=== PATIENT | female | born 1975 | race Caucasian/White ===

== ENCOUNTER 2016-12-02 14:00 | Inpatient (IN) | payer OTHER ==
[~2016-12-02] VITALS: Ht 167.6 cm; Wt 109.1 kg
[2016-12-02 16:00] VITALS: Ht 167.6 cm; Wt 109.1 kg
[2016-12-02 16:32] VITALS: BP 122/71; RESP 16
[2016-12-02] MEDS ORDERED: ONDANSETRON 4 MG INJ IV PRN (17:00)
[2016-12-02] MEDS ORDERED: HYDROCODONE/APAP (5/325) TAB PO PRN (17:00)
[2016-12-02] MEDS ORDERED: morphine 2 MG INJ IV PRN (17:00)
[2016-12-02] MEDS: SOD CHLORIDE 0.9% 1,000 ML IV SCH (17:38)
[2016-12-02] MEDS: CEFTRIAXONE 1 GM/50 ML (PMX) 50 ML IVPB SCH (17:38)
--- NOTE | 2016-12-02 19:02 | HP ---
Date/Time of Note Date/Time of Note DATE: 12/02/16 TIME: 18:57 Assessment/Plan VTE Prophylaxis VTE Prophylaxis Intervention: ambulation Lines/Catheters IV [facility] (from [facility] Peripheral IV Urinary Cath still in place: No Assessment/Plan Chief Complaint/Hosp Course 1. Right-sided nephrolithiasis IV fluids Urology consultation obtained Pain control 2. Hypothyroidism Resume home medications 3. UTI secondary to nephrolithiasis Rocephin IV Prophylaxis: Ambulate Problems: HPI/ROS Admit Date/Time Admit Date/Time Dec 02, 2016 at 16:00 Hx of Present Illness Patient is a 41-year-old female with history of hypothyroidism as well as likely nephrolithiasis. Patient had appear to be an episode of nephrolithiasis several months ago which resolved on its own. Patient states that the pain returned on the right side last week where she presented to an outside ER and CT abdomen showed right-sided nephrolithiasis, she was discharged with pain medications but pain persisted and hence returned to the ED where KUB still showed a right-sided stone and ultrasound of the right kidney showed hydronephrosis. UA at outside hospital suggested a UTI. Patient currently denies any significant pain but does report some nausea. Patient has no other complaints this time. ROS Constitutional: improved, no complaints Eyes: no complaints ENT: no complaints Respiratory: no complaints Cardiovascular: no complaints Gastrointestinal: nausea Genitourinary: no complaints Musculoskeletal: no complaints Skin: no complaints Neurologic: no complaints Endocrine: no complaints Lymphatic: no complaints Psychological: nl mood/affect, no complaints Immunologic: no complaints PMH/Family/Social Past Medical History Medical History: hypothyroid Family History Significant Family History: other (Sister with kidney stones) Social History Alcohol Use: rarely Smoking Status: Never smoker Drug Use: none Exam/Review of Systems Vital Signs Vitals Vital Signs Date Time Temp Pulse Resp B/P Pulse Ox O2 Delivery O2 Flow Rate FiO2 12/02/16 16:32 98.7 74 16 122/71 95 Exam Constitutional: alert, oriented Respiratory: clear to auscultation Cardiovascular: regular rate and rhythm Gastrointestinal: soft, No distended Musculoskeletal: nl extremities to inspection Medications Medications Current Medications Sodium Chloride (NS) 1,000 ml @ 100 mls/hr Q10H IV Last administered on t 17:38; Admin Dose 100 MLS/HR; Start 12/02/16 at 17:00 Morphine Sulfate (morphine) 2 mg Q3 PRN IV PAIN; Start 12/02/16 at 17:00 Acetaminophen/ Hydrocodone Bitart ([place] (5/325)) 1 tab Q4H PRN PO PAIN; Start 12/02/16 at 17:00 Ondansetron HCl 4 mg 4 mg Q6H PRN IV NAUSEA AND/OR VOMITING Last administered on 12/02/16 17:55; Admin Dose 4 MG; Start 12/02/16 at 17:00 Ceftriaxone Sodium (Rocephin) 50 ml @ 100 mls/hr Q24H IVPB Last administered on 12/02/16 17:38; Admin Dose 100 MLS/HR; Start 12/02/16 at 17:00 Ketorolac Tromethamine (Toradol) 15 mg Q6H PRN IV PAIN; Start 12/02/16 at 18:00 ; Stop 12/05/16 at 17:59 KEVON DONNELLY Dec 02, 2016 19:02
--- NOTE | 2016-12-02 19:27 | CONS ---
Date/Time of Note Date/Time of Note DATE: 12/02/16 TIME: 19:17 Assessment/Plan Assessment/Plan Chief Complaint/Hosp Course 41-year-old female with history of right flank pain and right upper ureteral stone on prior CT scan that was done 5 days earlier. The patient had an attack of pain earlier this morning and has right hydronephrosis on the ultrasound. Since we do not have the results of the CT scan that she had and the stone is not seen on the KUB I will order a repeat of the CAT scan to localize the stone and see the size of the stone then one could make a decision as far as treatment in the meantime we shall strain all her urine for stones send urine for culture and sensitivity as it was reported that she does have the urinary tract infection She does have a history of hypothyroidism continue her thyroid medications Problems: Consultation Date/Type/Reason Admit Date/Time Dec 02, 2016 at 16:00 Date of Consultation: Dec 02, 2016 Type of Consultation: Urology Reason for Consultation Right hydronephrosis and possible right ureteral stone Referring Provider: KEVON DONNELLY of Present Illness 41-year-old female 2 para 2 presented to the emergency room at [facility] 5 days ago with right flank pain. She had a CT scan of the abdomen and pelvis and that showed a right ureteral stone. the patient does not know the size of the stone she was given pain medication and sent home with instruction to see her primary care doctor and be referred to a urologist. However the patient continued to have pain daily and she could not tolerate the pain anymore so she went back to the same emergency room at [facility]. This time they did a renal ultrasound which showed right hydronephrosis and a KUB of which the report is not available to me. The patient was transferred to [facility] because of insurance. When she was she did not have any kidney problem and there was no history of stones at that time. However earlier this year she was found to have microscopic hematuria and her doctor in [facility] did an ultrasound on her and may have told her she may have a stone Constitutional: No chills, No febrile Eyes: no complaints ENT: no complaints Respiratory: no complaints Cardiovascular: no complaints Gastrointestinal: nausea, No vomiting Genitourinary: no complaints, other (No urinary frequency urgency or constant urge to urinate to suggest that the stone is in the distal ureter) Musculoskeletal: no complaints Skin: no complaints Neurologic: no complaints Endocrine: other (She has hypothyroidism) Lymphatic: no complaints Psychological: nl mood/affect, no complaints Immunologic: no complaints Past Medical History Medical History: hypothyroid Past Surgical History Past Surgical Hx: other (Breast reduction) Social History Alcohol Use: rarely Smoking Status: Never smoker Drug Use: none Other Social History Last menstrual period was 2 weeks ago Exam/Review of Systems Vital Signs Vitals Vital Signs Date Time Temp Pulse Resp B/P Pulse Ox O2 Delivery O2 Flow Rate FiO2 12/02/16 16:32 98.7 74 16 122/71 95 Exam Constitutional: alert, oriented Psych: no complaints Head: normocephalic Eyes: nl conjunctiva ENMT: nl external ears & nose Neck: supple Respiratory: normal air movement Cardiovascular: No edema Gastrointestinal: soft, No mass Genitourinary - Female: CVA tenderness (Right side), other (Pelvic exam showed no mass no discharge and no pain) Musculoskeletal: nl extremities to inspection Extremities: normal pulses, No calf tenderness, No edema Results I looked at the CD that was sent with her from [facility]. It only had the renal ultrasound which showed right hydronephrosis. It also had a KUB and I am not sure the quality on the CD is good to be able to diagnose or see a stone. The CT scan that she had 5 days ago was not sent Medications Medications Current Medications Sodium Chloride (NS) 1,000 ml @ 100 mls/hr Q10H IV Last administered on 17:38; Admin Dose 100 MLS/HR; Start 12/02/16 at 17:00 Morphine Sulfate (morphine) 2 mg Q3 PRN IV PAIN; Start 12/02/16 at 17:00 Acetaminophen/ Hydrocodone Bitart ([place] (5/325)) 1 tab Q4H PRN PO PAIN; Start 12/02/16 at 17:00 Ondansetron HCl 4 mg 4 mg Q6H PRN IV NAUSEA AND/OR VOMITING Last administered on 12/02/16 17:55; Admin Dose 4 MG; Start 12/02/16 at 17:00 Ceftriaxone Sodium (Rocephin) 50 ml @ 100 mls/hr Q24H IVPB Last administered on 12/02/16 17:38; Admin Dose 100 MLS/HR; Start 12/02/16 at 17:00 Ketorolac Tromethamine (Toradol) 15 mg Q6H PRN IV PAIN; Start 12/02/16 at 18:00 ; Stop 12/05/16 at 17:59 Acetaminophen (Tylenol Tab) 650 mg Q6H PRN PO PAIN LEVEL 1-3 OR FEVER; Start at 19:30; Status UNV Docusate Sodium (Colace) 100 mg Q12H PRN PO CONSTIPATION; Start 12/02/16 at 19: 30; Status UNV Zolpidem Tartrate (Ambien) 5 mg QHS PRN PO SLEEP; Start 12/02/16 at 19:30; Status UNV SHELLEY BOBO MD Dec 02, 2016 19:27
[2016-12-02] MEDS ORDERED: ACETAMINOPHEN 325 MG TAB PO PRN (19:30)
[2016-12-02] MEDS ORDERED: NACL 0.9% 3 ML SYG IV SCH (19:30)
[2016-12-02] MEDS ORDERED: ZOLPIDEM 5 MG TAB PO PRN (19:30)
[2016-12-02] MEDS ORDERED: METOCLOPRAMIDE 10 MG INJ IV PRN (20:40)
[2016-12-02 21:11] VITALS: BP 132/79; RESP 18
[2016-12-03 01:29] LABS: ADD UMIC YES; UR ASCORBIC ACID NEGATIVE (NEGATIVE); UR BILIRUBIN (Dip) NEGATIVE (NEGATIVE); UR BLOOD (Dip) NEGATIVE (NEGATIVE); UR CLARITY SLIGHTLY CLOUDY (CLEAR); UR COLOR YELLOW (YELLOW); UR GLUCOSE (Dip) NEGATIVE (NEGATIVE); UR KETONES (Dip) 1+ mg/dL (NEGATIVE); UR LEUKOCYTE ESTERASE (Dip) TRACE Leu/ul (NEGATIVE); UR NITRITE (Dip) NEGATIVE (NEGATIVE); UR RBC 1 /HPF (0-5); UR SPECIFIC GRAVITY (Dip) 1.013 (1.003-1.030); UR SQUAMOUS EPITHELIAL CELL FEW /HPF (FEW); UR TOTAL PROTEIN (Dip) NEGATIVE (NEGATIVE); UR UROBILINOGEN (Dip) NEGATIVE (NEGATIVE)
[2016-12-03 01:45] VITALS: BP 112/66; RESP 18
[2016-12-03] MEDS: SOD CHLORIDE 0.9% 1,000 ML IV SCH ×4 (03:00→15:35)
[2016-12-03 06:22] LABS: BASOPHIL # 0.1 10^3/ul (0.0-0.1); BASOPHILS % 0.7 % (0.0-2.0); EOSINOPHILS # 0.1 10^3/ul (0.0-0.5); EOSINOPHILS % 1.4 % (0.0-7.0); HEMATOCRIT 35.3 % (37.0-47.0); HEMOGLOBIN 11.5 g/dl (12.0-16.0); LYMPHOCYTES # 1.9 10^3/ul (0.8-2.9); LYMPHOCYTES % 22.4 % (15.0-51.0); MEAN CORPUSCULAR HEMOGLOBIN 28.8 pg (29.0-33.0); MEAN CORPUSCULAR HGB CONC 32.6 g/dl (32.0-37.0); MEAN CORPUSCULAR VOLUME 88.3 fl (82.0-101.0); MEAN PLATELET VOLUME 10.2 fl (7.4-10.4); MONOCYTE # 0.6 10^3/ul (0.3-0.9); MONOCYTES % 6.5 % (0.0-11.0); NEUTROPHILS % 68.8 % (39.0-77.0); PLATELET COUNT 283 10^3/UL (140-415); RED CELL DISTRIBUTION WIDTH 12.9 % (11.5-14.5); WHITE BLOOD COUNT 8.5 10^3/ul (4.8-10.8)
[2016-12-03 06:51] LABS: INR 1.04; PROTIME 13.6 Sec (12.2-14.2); PT RATIO 1.1
[2016-12-03] MEDS: LEVOTHYROXINE 100 MCG TAB GTB SCH (06:54)
[2016-12-03 07:06] LABS: ALBUMIN 3.4 g/dl (3.3-4.9); ALBUMIN/GLOBULIN RATIO 1.21; BILIRUBIN,INDIRECT 0.5 mg/dl (0-1.1); BILIRUBIN,TOTAL 0.5 mg/dl (0.2-1.3); CALCIUM 8.4 mg/dl (8.4-10.2); CREATININE 0.84 mg/dl (0.44-1.00); MAGNESIUM 1.9 mg/dl (1.7-2.5); PHOSPHORUS 3.3 mg/dl (2.5-4.9); TOTAL PROTEIN 6.2 g/dl (6.1-8.1)
[2016-12-03 07:52] VITALS: BP 123/80; RESP 16
--- NOTE | 2016-12-03 09:43 | RADRPT ---
PROCEDURE: CT scan of the abdomen and pelvis without IV contrast. CLINICAL INDICATION: 41-year-old female with right sided hydronephrosis and right-sided ureterolit hiasis. TECHNIQUE: Thin section axial, coronal and sagittal images were performed through the abdomen and pelvis without contrast. Radiation Dose: CTDI: 23.3 and DLP: 1508. One or more of the following dose reduction techniques were used: - Automated exposure control. - Adjustment of the mA and/or kV according to patient size. Use of iterative reconstruction technique. COMPARISON: Chest x-ray 05/07/2016 06:18 a.m. FINDINGS: Soft tissues: Normal. Lungs and pleural spaces: Normal. Heart: Normal. The liver, common bile duct and gallbladder: There is diffuse fatty infiltration of the liver. Live r is enlarged measuring 16.7 cm AP. No hepatic mass or intrahepatic biliary ductal dilatation is id entified. The gallbladder is small and contracted. No cholelith is identified. Gastrointestinal: There is no evidence of a hiatal hernia. There is particulate matter and fluid in the stomach. The small bowel loops have a normal caliber. There is diastasis rectus associated wi th a small midline umbilical hernia which contains only fat. There is fecal material in the colon. The vermiform appendix is normal. There is no evidence of diverticulitis or diverticulosis. No in guinal hernia is identified. Pancreas: Normal. The extrahepatic common bile duct is normal. Kidneys, bladder and adrenal glands : There is moderate hydronephrosis of the right kidney. There i s a 7 mm obstructing ureterolith at the right ureteropelvic junction. There is prominence of the lef t renal calyces which may reflect pelvocaliectasis related to infection, reflux or passage of a rece nt stone. No obstructing ureterolith is noted in the left renal collecting system. The urinary bladder is normal. No bladder stone is identified. Spleen: Normal. Lymph nodes: Normal. Reproductive system and pelvis : The uterus is anteflexed and normal in size. No abnormal adnexal m ass is noted. No free fluid is present in the pelvis. The ovaries are not well visualized. Bony elements: There are degenerative osteophytes in the mid and lower thoracic spine. There is no evidence of spondylolysis or spondylolisthesis. No acute bony fracture or bone metastasis is identi fied. Vasculature: Normal. IMPRESSION: 1. A 7 mm ureterolith is identified at the right ureteral vesicle junction causing moderate hydrone phrosis of the right kidney. 2. Mild pelvocaliectasis of the left kidney without evidence of an obstructing ureterolith. 3. Hepatomegaly with fatty infiltration of the liver. 4. Diastasis rectus with tiny midline umbilical hernia containing only fat measuring 1.7 cm AP by 5 .4 mm transverse. 5. 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 RPTAT:AAJJ Physician Nataly Date Time Electronically viewed and signed by Kalyan Fitzgerald Physician on 12/03/2016 09:43 JANET/
[2016-12-03] MEDS: KETOROLAC 15 MG INJ IV PRN (10:58)
--- NOTE | 2016-12-03 13:52 | PN ---
Date/Time of Note Date/Time of Note DATE: 12/03/16 TIME: 13:49 Assessment/Plan VTE Prophylaxis VTE Prophylaxis Intervention: ambulation Lines/Catheters IV C[facility]ter Type (from [facility]): Peripheral IV Urinary Cath still in place: No Assessment/Plan Chief Complaint/Hosp Course 1. Right-sided nephrolithiasis-pain is improved IV fluids CT abdomen shows a 7 mm ureterolith at the right ureteral vesicle junction causing moderate hydronephrosis of the right kidney Urology consultation appreciated, follow-up with recommendations Pain control 2. Hypothyroidism Resume home medications 3. UTI secondary to nephrolithiasis UA urine culture negative at this time Continue Rocephin IV today but DC tomorrow if culture is still negative Prophylaxis: Ambulate Problems: Subjective 24 Hr Interval Summary Constitutional: no complaints Exam/Review of Systems Vital Signs Vitals Vital Signs Date Time Temp Pulse Resp B/P Pulse Ox O2 Delivery O2 Flow Rate FiO2 12/03/16 07:52 99.0 74 16 123/80 97 Intake and Output 12/02/16 12/02/16 12/03/16 15:00 23:00 07:00 Intake Total 450 ml 1410 ml Output Total 1100 ml Balance 450 ml 310 ml Exam Constitutional: alert, oriented Head: normocephalic Respiratory: clear to auscultation Cardiovascular: regular rate and rhythm Gastrointestinal: soft, No distended Musculoskeletal: nl extremities to inspection Results Result Diagram: 12/03/16 0535 12/03/16 0535 Results 24 hrs Laboratory Tests Test 12/02/16 21:00 12/03/16 05:35 Urine Color YELLOW Urine Clarity SLIGHTLY CLOUDY A Urine pH 7.0 Urine Specific [place] 1.013 Urine Ketones 1+ H Urine Nitrite NEGATIVE Urine Bilirubin NEGATIVE Urine Urobilinogen NEGATIVE Urine Leukocyte Esterase TRACE A Urine Microscopic RBC 1 Urine Microscopic WBC 3 Urine Squamous Epithelial Cells FEW Urine Hemoglobin NEGATIVE Urine Glucose NEGATIVE Urine Total Protein NEGATIVE Urine Test NEGATIVE White Blood Count 8.5 Red Blood Count 4.00 L Hemoglobin 11.5 L Hematocrit 35.3 L Mean Corpuscular Volume 88.3 Mean Corpuscular Hemoglobin 28.8 L Mean Corpuscular Hemoglobin Concent 32.6 Red Cell Distribution Width 12.9 Platelet Count 283 Mean Platelet Volume 10.2 Neutrophils % 68.8 Lymphocytes % 22.4 Monocytes % 6.5 Eosinophils % 1.4 Basophils % 0.7 Nucleated Red Blood Cells % 0.0 Neutrophils # (Manual) 5.8 Lymphocytes # 1.9 Monocytes # 0.6 Eosinophils # 0.1 Basophils # 0.1 Nucleated Red Blood Cells # 0.0 Prothrombin Time 13.6 Prothrombin Time Ratio 1.1 INR International Normalized Ratio 1.04 Activated Partial Thromboplast Time 25.0 Sodium Level 142 Potassium Level 4.0 Chloride Level 110 Carbon Dioxide Level 25 Anion Gap 11 Blood Urea Nitrogen 7 Creatinine 0.84 Glucose Level 92 Hemoglobin A1c 5.5 Calcium Level 8.4 Phosphorus Level 3.3 Magnesium Level 1.9 Total Bilirubin 0.5 Direct Bilirubin 0.00 Indirect Bilirubin 0.5 Aspartate Amino Transf (AST/SGOT) 15 Alanine Aminotransferase (ALT/SGPT) 37 Alkaline Phosphatase 52 Total Protein 6.2 Albumin 3.4 Globulin 2.80 Albumin/Globulin Ratio 1.21 Medications Medications Current Medications Sodium Chloride (NS) 1,000 ml @ 100 mls/hr Q10H IV Last administered on 04:13; Admin Dose 100 MLS/HR; Start 12/02/16 at 17:00 Morphine Sulfate (morphine) 2 mg Q3 PRN IV PAIN; Start 12/02/16 at 17:00 Acetaminophen/ Hydrocodone Bitart ([place] (5/325)) 1 tab Q4H PRN PO PAIN; Start 12/02/16 at 17:00 Ondansetron HCl 4 mg 4 mg Q6H PRN IV NAUSEA AND/OR VOMITING Last administered on 12/02/16 17:55; Admin Dose 4 MG; Start 12/02/16 at 17:00 Ceftriaxone Sodium (Rocephin) 50 ml @ 100 mls/hr Q24H IVPB Last administered on 12/02/16 17:38; Admin Dose 100 MLS/HR; Start 12/02/16 at 17:00 Ketorolac Tromethamine (Toradol) 15 mg Q6H PRN IV PAIN Last administered on 12/03 10:58; Admin Dose 15 MG; Start 12/02/16 at 18:00; Stop 12/05/16 at 17:59 Acetaminophen (Tylenol Tab) 650 mg Q6H PRN PO PAIN LEVEL 1-3 OR FEVER; Start at 19:30 Docusate Sodium (Colace) 100 mg Q12H PRN PO CONSTIPATION; Start 12/02/16 at 19: 30 Zolpidem Tartrate (Ambien) 5 mg QHS PRN PO SLEEP; Start 12/02/16 at 19:30 Metoclopramide HCl (Reglan) 10 mg Q6H PRN IV NAUSEA AND/OR VOMITING Last administered on 12/02/16 20:59; Admin Dose 10 MG; Start 12/02/16 at 20:40 Levothyroxine Sodium (Synthroid) 100 mcg DAILY@06 GTB Last administered on 06:54; Admin Dose 100 MCG; Start 12/03/16 at 07:00 KEVON DONNELLY Dec 03, 2016 13:52
[2016-12-03] MEDS: DOCUSATE SODIUM 100 MG CAP PO PRN (13:58)
[2016-12-03 14:00] VITALS: BP 123/65; RESP 16
[2016-12-03] MEDS: CEFTRIAXONE 1 GM/50 ML (PMX) 50 ML IVPB SCH (17:25)
--- NOTE | 2016-12-03 19:28 | PN ---
Date/Time of Note Date/Time of Note DATE: 12/03/16 TIME: 19:20 Assessment/Plan VTE Prophylaxis VTE Prophylaxis Intervention: ambulation Lines/Catheters IV Catheter Type (from [facility]): Peripheral IV Urinary Cath still in place: No Assessment/Plan Chief Complaint/Hosp Course 41-year-old female with history of right flank pain and right upper ureteral stone on prior CT scan that was done 5 days earlier. The patient had an attack of pain earlier this morning and had right hydronephrosis on the ultrasound. CT scan of the abdomen and pelvis did show a 7 mm stone at the right ureteropelvic junction with mild hydronephrosis I did order a KUB which was done right now and one could see the stone but not very clear because the transverse colon is overlying the same area. Since the patient is comfortable at the present and since we are going on a weekend for 3 days she asked if she could go home and I think she could go on pain medications and Flomax and follow-up as an outpatient in the office. If she has pain after discharge and the pain is not controlled with oral pain medications I instructed her to come back to the emergency room at [facility] then we will readmit her and we will have then to treat the stone. Problems: Subjective 24 Hr Interval Summary Constitutional: no complaints, No chills, No febrile Eyes: no complaints ENT: no complaints Respiratory: no complaints Cardiovascular: no complaints Gastrointestinal: No nausea, No vomiting Genitourinary: other (Right flank pain earlier today) Musculoskeletal: no complaints Skin: no complaints Neurologic: no complaints Exam/Review of Systems Vital Signs Vitals Vital Signs Date Time Temp Pulse Resp B/P Pulse Ox O2 Delivery O2 Flow Rate FiO2 12/03/16 14:00 98.9 79 16 123/65 97 Intake and Output 12/02/16 12/02/16 12/03/16 15:00 23:00 07:00 Intake Total 450 ml 1410 ml Output Total 1100 ml Balance 450 ml 310 ml Exam Constitutional: alert, oriented Psych: no complaints Head: normocephalic Eyes: nl conjunctiva ENMT: nl external ears & nose Neck: non-tender Respiratory: normal air movement Cardiovascular: nl pulses Gastrointestinal: soft Genitourinary - Female: CVA tenderness (Right side) Musculoskeletal: nl extremities to inspection Extremities: No calf tenderness, No edema Results CT scan of the abdomen and pelvis: IMPRESSION: 1. A 7 mm ureterolith is identified at the right ureteropelvic junction causing moderate hydronephrosis of the right kidney. 2. Mild pelvocaliectasis of the left kidney without evidence of an obstructing ureterolith. 3. Hepatomegaly with fatty infiltration of the liver. 4. Diastasis rectus with tiny midline umbilical hernia containing only fat measuring 1.7 cm AP by 5.4 mm transverse. 5. 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 RPTAT:AAJJ Physician Nataly Date Time Result Diagram: 12/03/1653412/03/16 0535 Results 24 hrs Laboratory Tests Test 12/02/16 21:00 12/03/16 05:35 Urine Color YELLOW Urine Clarity SLIGHTLY CLOUDY A Urine pH 7.0 Urine Specific [place] 1.013 Urine Ketones 1+ H Urine Nitrite NEGATIVE Urine Bilirubin NEGATIVE Urine Urobilinogen NEGATIVE Urine Leukocyte Esterase TRACE A Urine Microscopic RBC 1 Urine Microscopic WBC 3 Urine Squamous Epithelial Cells FEW Urine Hemoglobin NEGATIVE Urine Glucose NEGATIVE Urine Total Protein NEGATIVE Urine Test NEGATIVE White Blood Count 8.5 Red Blood Count 4.00 L Hemoglobin 11.5 L Hematocrit 35.3 L Mean Corpuscular Volume 88.3 Mean Corpuscular Hemoglobin 28.8 L Mean Corpuscular Hemoglobin Concent 32.6 Red Cell Distribution Width 12.9 Platelet Count 283 Mean Platelet Volume 10.2 Neutrophils % 68.8 Lymphocytes % 22.4 Monocytes % 6.5 Eosinophils % 1.4 Basophils % 0.7 Nucleated Red Blood Cells % 0.0 Neutrophils # (Manual) 5.8 Lymphocytes # 1.9 Monocytes # 0.6 Eosinophils # 0.1 Basophils # 0.1 Nucleated Red Blood Cells # 0.0 Prothrombin Time 13.6 Prothrombin Time Ratio 1.1 INR International Normalized Ratio 1.04 Activated Partial Thromboplast Time 25.0 Sodium Level 142 Potassium Level 4.0 Chloride Level 110 Carbon Dioxide Level 25 Anion Gap 11 Blood Urea Nitrogen 7 Creatinine 0.84 Glucose Level 92 Hemoglobin A1c 5.5 Calcium Level 8.4 Phosphorus Level 3.3 Magnesium Level 1.9 Total Bilirubin 0.5 Direct Bilirubin 0.00 Indirect Bilirubin 0.5 Aspartate Amino Transf (AST/SGOT) 15 Alanine Aminotransferase (ALT/SGPT) 37 Alkaline Phosphatase 52 Total Protein 6.2 Albumin 3.4 Globulin 2.80 Albumin/Globulin Ratio 1.21 Medications Medications Current Medications Sodium Chloride (NS) 1,000 ml @ 100 mls/hr Q10H IV Last administered on 15:35; Admin Dose 100 MLS/HR; Start 12/02/16 at 17:00 Morphine Sulfate (morphine) 2 mg Q3 PRN IV PAIN; Start 12/02/16 at 17:00 Acetaminophen/ Hydrocodone Bitart ([place] (5/325)) 1 tab Q4H PRN PO PAIN; Start 12/02/16 at 17:00 Ondansetron HCl 4 mg 4 mg Q6H PRN IV NAUSEA AND/OR VOMITING Last administered on 12/02/16 17:55; Admin Dose 4 MG; Start 12/02/16 at 17:00 Ceftriaxone Sodium (Rocephin) 50 ml @ 100 mls/hr Q24H IVPB Last administered on 12/03/16 17:25; Admin Dose 100 MLS/HR; Start 12/02/16 at 17:00 Ketorolac Tromethamine (Toradol) 15 mg Q6H PRN IV PAIN Last administered on 12/03 10:58; Admin Dose 15 MG; Start 12/02/16 at 18:00; Stop 12/05/16 at 17:59 Acetaminophen (Tylenol Tab) 650 mg Q6H PRN PO PAIN LEVEL 1-3 OR FEVER; Start at 19:30 Docusate Sodium (Colace) 100 mg Q12H PRN PO CONSTIPATION Last administered on 13:58; Admin Dose 100 MG; Start 12/02/16 at 19:30 Zolpidem Tartrate (Ambien) 5 mg QHS PRN PO SLEEP; Start 12/02/16 at 19:30 Metoclopramide HCl (Reglan) 10 mg Q6H PRN IV NAUSEA AND/OR VOMITING Last administered on 12/02/16 20:59; Admin Dose 10 MG; Start 12/02/16 at 20:40 Levothyroxine Sodium (Synthroid) 100 mcg DAILY@06 GTB Last administered on 06:54; Admin Dose 100 MCG; Start 12/03/16 at 07:00 SHELLEY BOBO MD Dec 03, 2016 19:28
[2016-12-03 20:00] VITALS: BP 112/62; RESP 18
--- NOTE | 2016-12-03 20:15 | RADRPT ---
PROCEDURE: XR Abdomen. CLINICAL INDICATION: Urinary tract calculus TECHNIQUE: AP abdomen x-ray. COMPARISON: CT abdomen and pelvis 12/03/2016 FINDINGS: The bowel gas pattern is normal. There is no evidence of obstruction. Ovoid 7 x 5 mm calculus projec ts just beneath the right ovary transverse process corresponding to the proximal right ureteral calc ulus seen on the CT. No additional radiopaque calculi are evident, please note that the entire pelv is is not included in the field of view. There is no evidence of visceromegaly or soft tissue mass. The osseous structures are unremarkable. RPTAT:HJJR IMPRESSION: 1. The approximately 7 x 5 mm calculus seen on the CT from earlier the same day projects just below the right L3 transverse process in the region of the proximal right ureter. 2. The remainder of the examination is unremarkable, please note that the the patient's pelvis is n ot included in the field of view. Physician Ashley Date Time Electronically viewed and signed by Physician Ashley on 12/03/2016 20:15 JR/
[2016-12-04 02:00] VITALS: BP 108/61; RESP 16
[2016-12-04] MEDS: SOD CHLORIDE 0.9% 1,000 ML IV SCH ×2 (02:42→08:46)
[2016-12-04] MEDS: DOCUSATE SODIUM 100 MG CAP PO PRN (05:57)
[2016-12-04] MEDS: LEVOTHYROXINE 100 MCG TAB GTB SCH (05:57)
[2016-12-04 06:03] LABS: BASOPHIL # 0.1 10^3/ul (0.0-0.1); BASOPHILS % 0.7 % (0.0-2.0); EOSINOPHILS # 0.2 10^3/ul (0.0-0.5); EOSINOPHILS % 1.9 % (0.0-7.0); HEMATOCRIT 34.4 % (37.0-47.0); HEMOGLOBIN 11.1 g/dl (12.0-16.0); LYMPHOCYTES # 1.8 10^3/ul (0.8-2.9); LYMPHOCYTES % 19.4 % (15.0-51.0); MEAN CORPUSCULAR HEMOGLOBIN 28.8 pg (29.0-33.0); MEAN CORPUSCULAR HGB CONC 32.3 g/dl (32.0-37.0); MEAN CORPUSCULAR VOLUME 89.1 fl (82.0-101.0); MEAN PLATELET VOLUME 10.3 fl (7.4-10.4); MONOCYTE # 0.7 10^3/ul (0.3-0.9); MONOCYTES % 7.7 % (0.0-11.0); NEUTROPHILS % 69.9 % (39.0-77.0); PLATELET COUNT 273 10^3/UL (140-415); RED BLOOD COUNT 3.86 10^6/ul (4.20-5.40); WHITE BLOOD COUNT 9.1 10^3/ul (4.8-10.8)
[2016-12-04 06:37] LABS: CALCIUM 8.2 mg/dl (8.4-10.2); CREATININE 0.92 mg/dl (0.44-1.00); POTASSIUM 4.2 mmol/L (3.5-5.1)
[2016-12-04] MEDS: KETOROLAC 15 MG INJ IV PRN (07:50)
[2016-12-04 08:11] VITALS: BP 109/67; RESP 18
--- NOTE | 2016-12-04 09:50 | PDOCDIS ---
Discharge Instructions CONDITION Patient Condition: Good HOME CARE INSTRUCTIONS: Diet Instructions: Regular ACTIVITY: Activity Restrictions: No Restrictions FOLLOW UP/APPOINTMENTS Follow-up Plan F/U WITH YOUR PCP IN 1-2 WEEKS AND WITH A UROLOGIST KEVON DONNELLY Dec 04, 2016 09:50
--- NOTE | 2016-12-04 12:07 | PN ---
Date/Time of Note Date/Time of Note DATE: 12/04/16 TIME: 12:01 Assessment/Plan VTE Prophylaxis VTE Prophylaxis Intervention: ambulation Lines/Catheters IV [facility]ter Type (from [facility]): Peripheral IV Urinary Cath still in place: No Assessment/Plan Chief Complaint/Hosp Course 41-year-old female with history of right flank pain and right upper ureteral stone on prior CT scan that was done 7 days earlier. The patient had an attack of pain earlier this morning . CT scan of the abdomen and pelvis did show a 7 mm stone at the right ureteropelvic junction with mild hydronephrosis KUB was done and showed the 7 x 5 mm calculus seen on the CT from earlier the same day projects just below the right L3 transverse process in the region of the proximal right ureter. Since the patient is comfortable at the present and since we are going on a weekend for 3 days she asked if she could go home and I think she could go on pain medications and Flomax and follow-up as an outpatient in the office. If she has pain after discharge and the pain is not controlled with oral pain medications I instructed her to come back to the emergency room at [facility] then we will readmit her and we will have then to treat the stone. Problems: Subjective 24 Hr Interval Summary Free Text/Dictation Patient had pain earlier this morning she was given oral pain medication but that did not relieve her pain then she was given intravenous pain medication and is comfortable at the present she is being discharged home today Constitutional: no complaints, No chills, No febrile Eyes: no complaints ENT: no complaints Respiratory: no complaints Cardiovascular: no complaints Gastrointestinal: no complaints Genitourinary: other (Right flank pain), No bleeding, No hematuria Musculoskeletal: no complaints Skin: no complaints Exam/Review of Systems Vital Signs Vitals Vital Signs Date Time Temp Pulse Resp B/P Pulse Ox O2 Delivery O2 Flow Rate FiO2 12/04/16 08:11 98.5 72 18 109/67 96 Intake and Output 12/03/16 12/03/16 12/04/16 15:00 23:00 07:00 Intake Total 2830 ml 2290 ml Output Total 1150 ml 800 ml Balance 1680 ml 1490 ml Exam Constitutional: alert, oriented Psych: no complaints Head: normocephalic Eyes: nl conjunctiva ENMT: nl external ears & nose Neck: supple Respiratory: normal air movement Cardiovascular: nl pulses Gastrointestinal: soft Genitourinary - Female: CVA tenderness (Right side) Musculoskeletal: nl extremities to inspection Extremities: No calf tenderness, No edema Skin: nl turgor Results Result Diagram: 12/04/16 0508 12/04/16 0508 Results 24 hrs Laboratory Tests Test 12/04/16 05:08 White Blood Count 9.1 Red Blood Count 3.86 L Hemoglobin 11.1 L Hematocrit 34.4 L Mean Corpuscular Volume 89.1 Mean Corpuscular Hemoglobin 28.8 L Mean Corpuscular Hemoglobin Concent 32.3 Red Cell Distribution Width 13.0 Platelet Count 273 Mean Platelet Volume 10.3 Neutrophils % 69.9 Lymphocytes % 19.4 Monocytes % 7.7 Eosinophils % 1.9 Basophils % 0.7 Nucleated Red Blood Cells % 0.0 Neutrophils # (Manual) 6.3 Lymphocytes # 1.8 Monocytes # 0.7 Eosinophils # 0.2 Basophils # 0.1 Nucleated Red Blood Cells # 0.0 Sodium Level 142 Potassium Level 4.2 Chloride Level 108 Carbon Dioxide Level 26 Anion Gap 12 Blood Urea Nitrogen 9 Creatinine 0.92 Glucose Level 99 Calcium Level 8.2 L Medications Medications Current Medications Sodium Chloride (NS) 1,000 ml @ 100 mls/hr Q10H IV Last administered on 02:42; Admin Dose 100 MLS/HR; Start 12/02/16 at 17:00 Morphine Sulfate (morphine) 2 mg Q3 PRN IV PAIN; Start 12/02/16 at 17:00 Acetaminophen/ Hydrocodone Bitart ([place] (5/325)) 1 tab Q4H PRN PO PAIN Last administered on 12/04/16 02:31; Admin Dose 1 TAB; Start 12/02/16 at 17:00 Ondansetron HCl 4 mg 4 mg Q6H PRN IV NAUSEA AND/OR VOMITING Last administered on 12/02/16 17:55; Admin Dose 4 MG; Start 12/02/16 at 17:00 Ceftriaxone Sodium (Rocephin) 50 ml @ 100 mls/hr Q24H IVPB Last administered on 12/03/16 17:25; Admin Dose 100 MLS/HR; Start 12/02/16 at 17:00 Ketorolac Tromethamine (Toradol) 15 mg Q6H PRN IV PAIN Last administered on 12/04 07:50; Admin Dose 15 MG; Start 12/02/16 at 18:00; Stop 12/05/16 at 17:59 Acetaminophen (Tylenol Tab) 650 mg Q6H PRN PO PAIN LEVEL 1-3 OR FEVER; Start at 19:30 Docusate Sodium (Colace) 100 mg Q12H PRN PO CONSTIPATION Last administered on 05:57; Admin Dose 100 MG; Start 12/02/16 at 19:30 Zolpidem Tartrate (Ambien) 5 mg QHS PRN PO SLEEP; Start 12/02/16 at 19:30 Metoclopramide HCl (Reglan) 10 mg Q6H PRN IV NAUSEA AND/OR VOMITING Last administered on 12/02/16 20:59; Admin Dose 10 MG; Start 12/02/16 at 20:40 Levothyroxine Sodium (Synthroid) 100 mcg DAILY@06 GTB Last administered on 05:57; Admin Dose 100 MCG; Start 12/03/16 at 07:00 SHELLEY BOBO MD Dec 04, 2016 12:07
--- NOTE | 2016-12-04 12:38 | DS ---
Date/Time of Note Date/Time of Note DATE: 12/04/16 TIME: 12:16 Discharge Summary Admission/Discharge Info Admit Date/Time Dec 02, 2016 at 16:00 Discharge Date/Time December 04, 2016 Discharge Diagnosis 1. Right-sided nephrolithiasis-pain is improved Patient follow-up with urologist as an outpatient for possible stone extraction CT abdomen shows a 7 mm ureterolith at the right ureteral vesicle junction causing moderate hydronephrosis of the right kidney Urology consultation appreciated, follow-up with recommendations 2. Hypothyroidism Resume home medications 3. UTI secondary to nephrolithiasis UA urine culture negative, no further antibiotics Status post Rocephin IV Patient Condition: Good Hospital Course Patient is a 41-year-old female with history of hypothyroidism as well as likely nephrolithiasis. Patient has what appears to be several episodes of nephrolithiasis, patient's most recent episode has been persistent patient had a prior CT abdomen showed a stone on the right side. Transferred to [facility] for insurance purposes. Patient was seen by urology recommended to continue IV fluids, patient's pain did improve patient did have CT abdomen that did show a persistent stone in the right side. Patient did state that her pain had significantly improved and was felt that patient could follow with urology as outpatient if need be for stone extraction. Of note patient had a questionable UTI but UA and urine culture at [facility] showed no signs of infection. Patient did receive Rocephin IV. Patient was felt to be stable for DC per urology plans once again a follow-up with urology as an outpatient. On the day of discharge patient vitals, labs and physical exam stable no further acute complaints question answered. Home Meds No Active Prescriptions or Reported Meds Follow-up Plan FOLLOW UP WITH YOUR PRIMARY CARE PHYSICIAN IN 1-2 WEEKS, follow-up with a urologist as an outpatient Primary Care Provider Himanshu Turner MD Time spent on discharge: > 30 minutes KEVON DONNELLY Dec 04, 2016 12:38
== END 2016-12-04 13:45 | disposition home or self-care (01) | DRG 690 ==
LOC: L-D 14:00 → UNDOADMIN 14:00 → MS2 16:00
PROVIDERS: ADMIT Internal Medicine; ATTEND Internal Medicine
DX: N39.0 Urinary tract infection, site not specified (principal); N13.2 Hydronephrosis with renal and ureteral calculous obstruction; E03.9 Hypothyroidism, unspecified
CPT/HCPCS: 74000; 74176; 80048; 80053; 81001; 83036; 83735; 84100; 84703; 85025; 85610; 85730; 87086; J0696; J1885; J2405; J2765; J7030

== ENCOUNTER 2016-12-06 15:36 | Inpatient (IN) | payer OTHER ==
[~2016-12-06] VITALS: Ht 167.6 cm; Wt 108.0 kg
[2016-12-06] MEDS ORDERED: KETOROLAC 15 MG INJ IV STA (17:00)
[2016-12-06] MEDS ORDERED: SOD CHLORIDE 0.9% 1,000 ML IV STA (17:00)
[2016-12-06] MEDS ORDERED: ONDANSETRON 4 MG INJ IV STA (17:00)
--- NOTE | 2016-12-06 17:02 | ERD ---
ER Documentation Chief Complaint Date/Time DATE: 12/06/16 TIME: 16:58 Chief Complaint DX KIDNEY STONE LAST WEEK. PAIN UNRELIEVED BY HOME MEDS. HPI 41-year-old female , presented to the emergency room today as instructed by Dr Knight, pt was seen and admitted last week for nephrolithiasis, s/p evaluation at [facility] for right flank pain. She had a CT scan of the abdomen and pelvis and that showed a 7 mm ureterolith right ureteral vesicle junction causing moderate hydronephrosis of the right kidney. Mild pelvocaliectasis of the left kidney without evidence of an obstruction being ureterolith. Hepatomegaly with fatty infiltrates of the liver. Diastasis rectus with tiny midline umbilical hernia containing only fat measuring 1.7 cm AP by 5.1 mm transverse. 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 The patient continues to have pain daily and she could not tolerate the pain is 10 on pain scale. Patient has been using her naproxen twice daily as instructed Flomax with little improvement of symptoms. She is here today for possible admission and reevaluation. ROS All systems reviewed and are negative except as per history of present illness. Medications Home Meds No Active Prescriptions or Reported Meds Allergies Allergies: Coded Allergies: No Known Allergy (Unverified , 12/02/16) PMhx/Soc Medical and Surgical Hx: pt denies Surgical Hx History of Surgery: No Anesthesia Reaction: No Hx Neurological Disorder: No Hx Respiratory Disorders: No Hx Cardiac Disorders: No Hx Psychiatric Problems: No Hx Miscellaneous Medical Probl: Yes (Thyroid Disease) Hx Alcohol Use: No Hx Substance Use: No Hx Tobacco Use: No Smoking Status: Never smoker Physical Exam Vitals Vital Signs Date Time Temp Pulse Resp B/P Pulse Ox O2 Delivery O2 Flow Rate FiO2 12/06/16 15:40 99.1 92 18 164/79 98 Stable, triage notes reviewed, blood pressure elevated at 164/79 Physical Exam Const: Well-nourished well-appearing well-hydrated obvious discomfort no acute distress Head: Atraumatic Eyes: Normal Conjunctiva, PERRLA, EOMI ENT: Normal External Ears, Nose and Mouth is membranes moist. Neck: Resp: Clear to auscultation bilaterally no rales wheezes or rhonchi Cardio: Regular rate and rhythm, no murmurs Abd: Soft, med check, right flank CVA tenderness, right sided abdominal pain. Skin: No petechiae or rashes Back: Right-sided flank tenderness Ext: Neur: Awake and alert Psych: Normal Mood and Affect Result Diagram: 12/06/16 1720 12/06/16 1720 Results 24 hrs Laboratory Tests Test 12/06/16 17:13 12/06/16 17:20 Urine Color YELLOW Urine Clarity SLIGHTLY CLOUDY Urine pH 6.0 Urine Specific [place] 1.010 Urine Ketones NEGATIVEmg/dL Urine Nitrite NEGATIVEmg/dL Urine Bilirubin NEGATIVEmg/dL Urine Urobilinogen NEGATIVEmg/dL Urine Leukocyte Esterase 2+[place]/ul Urine Microscopic RBC 4/HPF Urine Microscopic WBC 10/HPF Urine Squamous Epithelial Cells FEW/HPF Urine Hemoglobin 1+mg/dL Urine Glucose NEGATIVEmg/dL Urine Total Protein NEGATIVEmg/dl White Blood Count 9.110^3/ul Red Blood Count 4.3610^6/ul Hemoglobin 12.3g/dl Hematocrit 38.5% Mean Corpuscular Volume 88.3fl Mean Corpuscular Hemoglobin 28.2pg Mean Corpuscular Hemoglobin Concent 31.9g/dl Red Cell Distribution Width 12.9% Platelet Count 83418^3/UL Mean Platelet Volume 10.0fl Neutrophils % 69.3% Lymphocytes % 21.5% Monocytes % 6.0% Eosinophils % 2.0% Basophils % 0.9% Nucleated Red Blood Cells % 0.0/100WBC Neutrophils # (Manual) 6.310^3/ul Lymphocytes # 2.010^3/ul Monocytes # 0.610^3/ul Eosinophils # 0.210^3/ul Basophils # 0.110^3/ul Nucleated Red Blood Cells # 0.010^3/ul Sodium Level 144mmol/L Potassium Level 3.4mmol/L Chloride Level 103mmol/L Carbon Dioxide Level 28mmol/L Anion Gap 16 Blood Urea Nitrogen 14mg/dl Creatinine 0.87mg/dl Glucose Level 101mg/dl Calcium Level 9.3mg/dl Total Bilirubin 0.3mg/dl Direct Bilirubin 0.00mg/dl Indirect Bilirubin 0.3mg/dl Aspartate Amino Transf (AST/SGOT) 26IU/L Alanine Aminotransferase (ALT/SGPT) 52IU/L Alkaline Phosphatase 68IU/L Total Protein 7.9g/dl Albumin 4.6g/dl Globulin 3.30g/dl Albumin/Globulin Ratio 1.39 Lipase 57U/L Current Medications Medications (Trade) Dose Ordered Sig/Jake Route PRN Reason Start Time Stop Time Status Last Admin Dose Admin Sodium Chloride (NS) 1,000 ml @ 1,000 mls/hr Q1H STAT IV 12/06/16 17:00 12/06/16 17:59 DC 12/06/16 17:24 Ondansetron HCl (Zofran Inj) 4 mg ONCE STAT IV 12/06/16 17:00 12/06/16 17:05 DC 12/06/16 17:25 Ketorolac Tromethamine (Toradol) 15 mg ONCE STAT IV 12/06/16 17:00 12/06/16 17:05 DC 12/06/16 17:25 Ceftriaxone Sodium 1 gm 1 gm ONCE ONCE IM 12/06/16 20:30 12/06/16 20:31 DC Sodium Chloride (NS) 1,000 ml @ 100 mls/hr Q10H IV 12/06/16 20:18 IV Flush (NS 3 ml) 3 ml PER PROTOCOL IV 12/06/16 20:30 Ondansetron HCl (Zofran Inj) 4 mg Q6H PRN IV NAUSEA AND/OR VOMITING 12/06/16 20:30 Acetaminophen (Tylenol Tab) 650 mg Q6H PRN PO PAIN LEVEL 1-3 OR FEVER 12/06/16 20:30 UNV Hydromorphone HCl (Dilaudid) 0.5 mg Q4H PRN IV SEVERE PAIN LEVEL 7-10 12/06/16 20:30 UNV Famotidine 20 mg 20 mg Q12 PO 12/06/16 21:00 UNV Ceftriaxone Sodium 50 ml @ 100 mls/hr Q24H IVPB 12/06/16 20:30 12/06/16 20:30 DC Ceftriaxone Sodium (Rocephin) 50 ml @ 100 mls/hr Q24H IVPB 12/07/16 20:30 UNV Interpretation text CBC shows no evidence of hemorrhage or infection Chemistry shows no evidence of significant electrolyte abnormalities or renal insufficiency Liver function tests shows no evidence of acute biliary or hepatic dysfunction Lipase shows no evidence of acute pancreatitis Urinalysis +2 leukocytes suggestive of infection. Procedures/MDM This pleasant 41-year-old female presents to emergency department today for evaluation of a 7 mm right kidney stone. Patient was utilized and seen by Dr Knight December 02, patient reports that she was discharged on the second with Flomax and Naprosyn instructed to return to emergency department if symptoms are not controlled with pain medication. Patient reports that she is taking medication as prescribed, pain is 8/10 on pain scale. Plan to repeat labs, 1 L of normal saline, Toradol 15 mg IV for pain. This case discussed with supervising physician ; Dr Knight called physician request KUB and we will admit and place orders, plan for ultrasonic and nephrolithiasis. Patient auditory testing unremarkable for anemia or evidence of leukocytosis. Electrolytes without evidence of imbalance, no renal insufficiency, pancreatitis , or hepatitis. Urinalysis positive for +2 leukocytes, patient reports that she had been treated for a urinary tract infection on her last admission with IV antibiotics, chart review shows that she had trace leukocytes at that time. Plan to treat UTI with gram of ceftriaxone 1 g IV now. Okay for patient to eat n.p.o. after midnight. . 2011 patient discharged from emergency department moved to inpatient status room available all care turned over to at this time. Departure Diagnosis: Primary Impression: Nephrolithiasis Condition: Stable TRU AYALA Dec 06, 2016 17:02
[2016-12-06 17:30] LABS: BASOPHIL # 0.1 10^3/ul (0.0-0.1); BASOPHILS % 0.9 % (0.0-2.0); EOSINOPHILS # 0.2 10^3/ul (0.0-0.5); HEMATOCRIT 38.5 % (37.0-47.0); HEMOGLOBIN 12.3 g/dl (12.0-16.0); LYMPHOCYTES % 21.5 % (15.0-51.0); MEAN CORPUSCULAR HEMOGLOBIN 28.2 pg (29.0-33.0); MEAN CORPUSCULAR HGB CONC 31.9 g/dl (32.0-37.0); MEAN CORPUSCULAR VOLUME 88.3 fl (82.0-101.0); MONOCYTE # 0.6 10^3/ul (0.3-0.9); NEUTROPHILS % 69.3 % (39.0-77.0); PLATELET COUNT 373 10^3/UL (140-415); RED BLOOD COUNT 4.36 10^6/ul (4.20-5.40); RED CELL DISTRIBUTION WIDTH 12.9 % (11.5-14.5); WHITE BLOOD COUNT 9.1 10^3/ul (4.8-10.8)
[2016-12-06 17:52] LABS: ALBUMIN 4.6 g/dl (3.3-4.9); ALBUMIN/GLOBULIN RATIO 1.39; BILIRUBIN,INDIRECT 0.3 mg/dl (0-1.1); BILIRUBIN,TOTAL 0.3 mg/dl (0.2-1.3); CALCIUM 9.3 mg/dl (8.4-10.2); CREATININE 0.87 mg/dl (0.44-1.00); POTASSIUM 3.4 mmol/L (3.5-5.1); TOTAL PROTEIN 7.9 g/dl (6.1-8.1)
[2016-12-06 18:03] LABS: ADD UMIC YES; UR ASCORBIC ACID NEGATIVE (NEGATIVE); UR BILIRUBIN (Dip) NEGATIVE (NEGATIVE); UR BLOOD (Dip) 1+ mg/dL (NEGATIVE); UR CLARITY SLIGHTLY CLOUDY (CLEAR); UR COLOR YELLOW (YELLOW); UR GLUCOSE (Dip) NEGATIVE (NEGATIVE); UR KETONES (Dip) NEGATIVE (NEGATIVE); UR LEUKOCYTE ESTERASE (Dip) 2+ Leu/ul (NEGATIVE); UR NITRITE (Dip) NEGATIVE (NEGATIVE); UR RBC 4 /HPF (0-5); UR SQUAMOUS EPITHELIAL CELL FEW /HPF (FEW); UR TOTAL PROTEIN (Dip) NEGATIVE (NEGATIVE); UR UROBILINOGEN (Dip) NEGATIVE (NEGATIVE)
--- NOTE | 2016-12-06 19:32 | RADRPT ---
PROCEDURE: XR Abdomen. CLINICAL INDICATION: 41-year of age, female. Abdominal pain. Evaluate for renal stone. TECHNIQUE: Supine and upright AP views of the abdomen. COMPARISON: None available. FINDINGS: No calculi are identified over either kidney, ureter or the bladder. Evaluation is somewhat limited due to moderate colonic stool. There is moderate stool in the transverse and right colon. Bowel gas pattern is normal. No abnormal abdominal calcifications. No acute bony abnormality. IMPRESSION: No urinary calculi are identified. Normal bowel gas pattern. RPTAT: HCTS Physician Rik Date Time Electronically viewed and signed by Physician Rik on 12/06/2016 19:31 CS/
[2016-12-06] MEDS ORDERED: CEFTRIAXONE 1 GM/50 ML (PMX) 50 ML IVPB SCH (20:30)
[2016-12-06] MEDS ORDERED: CEFTRIAXONE 1 GM INJ IM ONE (20:30)
[2016-12-06] MEDS ORDERED: ONDANSETRON 4 MG INJ IV PRN (20:30)
[2016-12-06] MEDS ORDERED: HYDROmorphONE 1 MG/ML SYG IV PRN (20:30)
[2016-12-06] MEDS ORDERED: ACETAMINOPHEN 325 MG TAB PO PRN (20:30)
[2016-12-06] MEDS ORDERED: NACL 0.9% 3 ML SYG IV SCH (20:30)
[2016-12-06 21:00] VITALS: BP 135/71; PULSE 69; RESP 18
[2016-12-06 21:17] VITALS: Ht 167.6 cm; Wt 108.0 kg
[2016-12-06] MEDS: SOD CHLORIDE 0.9% 1,000 ML IV SCH (22:01)
[2016-12-06] MEDS: FAMOTIDINE 20 MG TAB PO SCH (22:01)
[2016-12-06] MEDS ORDERED: LEVOFLOXACIN 750MG/D5W (PMX) 150 ML IVPB ONE (23:00)
[2016-12-07] VITALS (13 sets, daily range): BP systolic 114–137; BP diastolic 62–87; PULSE 66–88; RESP 16–23
[2016-12-07 05:44] LABS: BASOPHIL # 0.1 10^3/ul (0.0-0.1); BASOPHILS % 1.2 % (0.0-2.0); EOSINOPHILS # 0.2 10^3/ul (0.0-0.5); EOSINOPHILS % 2.8 % (0.0-7.0); HEMATOCRIT 34.3 % (37.0-47.0); LYMPHOCYTES # 1.8 10^3/ul (0.8-2.9); LYMPHOCYTES % 24.9 % (15.0-51.0); MEAN CORPUSCULAR HEMOGLOBIN 28.4 pg (29.0-33.0); MEAN CORPUSCULAR HGB CONC 32.1 g/dl (32.0-37.0); MEAN CORPUSCULAR VOLUME 88.6 fl (82.0-101.0); MEAN PLATELET VOLUME 10.1 fl (7.4-10.4); MONOCYTE # 0.5 10^3/ul (0.3-0.9); MONOCYTES % 6.5 % (0.0-11.0); NEUTROPHILS % 64.2 % (39.0-77.0); PLATELET COUNT 314 10^3/UL (140-415); RED BLOOD COUNT 3.87 10^6/ul (4.20-5.40); RED CELL DISTRIBUTION WIDTH 12.8 % (11.5-14.5); WHITE BLOOD COUNT 7.3 10^3/ul (4.8-10.8)
[2016-12-07 06:12] LABS: ALBUMIN 3.4 g/dl (3.3-4.9); ALBUMIN/GLOBULIN RATIO 1.3; BILIRUBIN,INDIRECT 0.4 mg/dl (0-1.1); BILIRUBIN,TOTAL 0.4 mg/dl (0.2-1.3); CALCIUM 8.1 mg/dl (8.4-10.2); CREATININE 0.81 mg/dl (0.44-1.00); POTASSIUM 3.9 mmol/L (3.5-5.1)
[2016-12-07] MEDS: SOD CHLORIDE 0.9% 1,000 ML IV SCH ×2 (06:18→12:23)
[2016-12-07] MEDS ORDERED: CEFAZOLIN 1 GM INJ ONE (07:00)
--- NOTE | 2016-12-07 07:09 | HP ---
Date/Time of Note Date/Time of Note DATE: 12/07/16 TIME: 06:53 Assessment/Plan VTE Prophylaxis VTE Prophylaxis Intervention: SCD's Lines/Catheters IV [facility]ter Type (from [facility]): Peripheral IV Urinary Cath still in place: No Assessment/Plan Chief Complaint/Hosp Course This is a 41-year-old female being admitted to the [facility] floor for: #1 right symptomatic nephrolithiasis: Patient has 7 mm right kidney stone, please see CT scan from 12/03 for further details. Has worsening pain at this time. IV pain medication. Consult to urology placed for possible surgical intervention. #2 urinary tract infection: Patient does not have any fevers or elevated white blood cell count however there is positive urinalysis. Will treat at the current time with Levaquin. #3 hypothyroidism: We will check TSH level continue levothyroxine. Will also check a PTH level in the setting of patient having kidney stone. #4 DVT and GI prophylaxis: SCDs, Protonix Course Problems: HPI/ROS Admit Date/Time Admit Date/Time Dec 06, 2016 at 18:37 Hx of Present Illness Chief complaint: Right flank pain This is a 41-year-old female who presented to the emergency room today as instructed by Dr Knight, pt was seen and admitted last week for nephrolithiasis , s/p evaluation at [facility] for right flank pain. She had a CT scan of the abdomen and pelvis and that showed a 7 mm ureterolith right ureteral vesicle junction causing moderate hydronephrosis of the right kidney. Patient has been using her naproxen twice daily as instructed Flomax with little improvement of symptoms. Patient returned today as her right flank pain was getting worse and she was told to return if the pain got worse again. She also has been noted to be having increased urinary frequency. Denies any fevers or any chest pain or shortness of breath. Allergies: NKDA Medications: See MAR ROS Const: HPI Eyes : No pain discharge or redness or change in visual acuity ENT: No pain, sore throat, congestion, congestion, dysphagia or discharge Respiratory: No shortness of breath, cough, sputum, wheezing, or pleuritic pain Cardiovascular: No chest pain, palpitation, PND, or edema GI : no change in appetite, abdominal pain, nausea, vomiting, diarrhea, constipation, or change in the color his stool Genitourinary: As per HPI Musculoskeletal: No joint pain, back pain, neck pain, restricted range of motion in neck or joints Skin: No rash, bruising or hives Neuro: No headache, dizziness, syncope, seizure, focal weakness Endocrine: No polyuria, polydipsia, temperature intolerance Psych: No hallucination, depression, anxiety or suicidal ideation PMH/Family/Social Past Medical History Right kidney stone, hypothyroidism Past Surgical History Right Achilles tendon repair, bilateral breast reduction Past Surgical Hx: other Family History Significant Family History: diabetes, hypertension Social History Alcohol Use: rarely Smoking Status: Never smoker Drug Use: none Exam/Review of Systems Vital Signs Vitals Vital Signs Date Time Temp Pulse Resp B/P Pulse Ox O2 Delivery O2 Flow Rate FiO2 12/07/16 02:00 98.1 62 20 114/62 96 12/06/16 21:00 Room Air Intake and Output 12/06/16 12/06/16 12/07/16 15:00 23:00 07:00 Intake Total 1000 ml 5550 ml Output Total 700 ml Balance 1000 ml 4850 ml Exam Exam General: It is a morbidly obese female laying in bed in no acute distress The patient is alert oriented -3 lying comfortably in bed. HEENT: Atraumatic, normocephalic. The pupils are equal, round and reactive. Extraocular motor are intact Neck: Supple with full range of motion. No rigidity or meningismus Chest: Nontender Lungs: Clear to auscultation bilaterally no crackles rales or wheezing Heart: Normal S1-S2, Regular rhythm and rate. No murmur, S3, or S4 Abdomen: Soft , nontender, nondistended , bowel sounds are present. No guarding no rebound tenderness , No masses or organomegaly. No costovertebral temporal angle mass Genitourinary: Right CVA tenderness to palpation Extremities: Normal to inspection, no edema no cyanosis Neurologic: Normal mental status, speech normal, cranial nerves II through XII are intact, motor and sensory are intact, no focal weakness Additional Comments CT scan from please see report for further details. IMPRESSION: 1. A 7 mm ureterolith is identified at the right ureteral vesicle junction causing moderate hydronephrosis of the right kidney. 2. Mild pelvocaliectasis of the left kidney without evidence of an obstructing ureterolith. 3. Hepatomegaly with fatty infiltration of the liver. 4. Diastasis rectus with tiny midline umbilical hernia containing only fat measuring 1.7 cm AP by 5.4 mm transverse. 5. 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 PROCEDURE: XR Abdomen. CLINICAL INDICATION: 41-year of age, female. Abdominal pain. Evaluate for renal stone. TECHNIQUE: Supine and upright AP views of the abdomen. COMPARISON: None available. FINDINGS: No calculi are identified over either kidney, ureter or the bladder. Evaluation is somewhat limited due to moderate colonic stool. There is moderate stool in the transverse and right colon. Bowel gas pattern is normal. No abnormal abdominal calcifications. No acute bony abnormality. IMPRESSION: No urinary calculi are identified. Normal bowel gas pattern. RPTAT: HCTS Physician Rik Date Time Electronically viewed and signed by Physician Rik on 12/06/2016 19: 31 CS/ CC: GUICHO HOWELL MD Labs Result Diagram: 12/07/1651712/07/16518 Medications Medications Current Medications Sodium Chloride (NS) 1,000 ml @ 100 mls/hr Q10H IV Last administered on 22:01; Admin Dose 100 MLS/HR; Start 12/06/16 at 20:18 Ondansetron HCl (Zofran Inj) 4 mg Q6H PRN IV NAUSEA AND/OR VOMITING; Start 12/06 at 20:30 Acetaminophen (Tylenol Tab) 650 mg Q6H PRN PO PAIN LEVEL 1-3 OR FEVER; Start at 20:30 Hydromorphone HCl (Dilaudid) 0.5 mg Q4H PRN IV SEVERE PAIN LEVEL 7-10; Start at 20:30 Famotidine 20 mg 20 mg Q12 PO Last administered on 12/06/16 22:01; Admin Dose 20 MG; Start 12/06/16 at 21:00 Levofloxacin/ Dextrose (Levaquin 750 Mg/ D5W 150 ml (Pmx)) 150 ml @ 100 mls/hr Q24H IVPB ; Start 12/07/16 at 23:00 Ketorolac Tromethamine (Toradol) 30 mg Q6H PRN IV PAIN; Start 12/07/16 at 04:00 ; Stop 12/10/16 at 03:59 RITO CALLEJAS Dec 07, 2016 07:09
[2016-12-07] MEDS: FAMOTIDINE 20 MG TAB PO SCH ×2 (08:19→20:32)
--- NOTE | 2016-12-07 08:25 | RADRPT ---
PROCEDURE: XR Abdomen. CLINICAL INDICATION: Right ureteral calculus TECHNIQUE: AP abdomen x-ray. COMPARISON: Abdominal radiograph from 12/06/2016 FINDINGS: There is a nonobstructive bowel gas pattern. There are no abnormal calcifications overlying the urinary tracts. Osseous and soft tissue structures are unremarkable. IMPRESSION: No radiopaque renal/ureteral calculi are identified. RPTAT: EE Physician Daina Date Time Electronically viewed and signed by Ashish Castano Physician on 12/07/2016 08:25 /
[2016-12-07] MEDS: KETOROLAC 30 MG INJ IV PRN ×2 (08:28→20:32)
--- NOTE | 2016-12-07 09:27 | RADRPT ---
PROCEDURE: Chest Radiograph. CLINICAL INDICATION: Preop TECHNIQUE: Single frontal chest radiograph. COMPARISON: None available FINDINGS: The cardiomediastinal silhouette is within normal limits. No infiltrate or effusion is seen. Th e bones are intact. IMPRESSION: 1. Unremarkable chest radiograph. RPTAT: KK .Tej Santos MD, MD Date Time Electronically viewed and signed by .Tej Santos MD, on 12/07/2016 09:27 .B/
--- NOTE | 2016-12-07 17:20 | HPN ---
Date/Time of Note Date/Time of Note DATE: 12/07/16 TIME: 17:20 Interval H&P Admission Note Pt. seen H&P reviewed: No system changes SHELLEY BOBO MD Dec 07, 2016 17:20
[2016-12-07] MEDS ORDERED: MEPERIDINE 100 MG INJ ONE (17:24)
[2016-12-07] MEDS ORDERED: LIDOCAINE 2% (SDV) 5 ML INJ ONE (17:24)
[2016-12-07] MEDS ORDERED: GLYCOPYRROLATE 0.4 MG INJ ONE (17:24)
[2016-12-07] MEDS ORDERED: NEOSTIGMINE 3 MG/3 ML SYRINGE ONE (17:24)
[2016-12-07] MEDS ORDERED: SUCCINYLCHOLINE CHLORIDE 100 MG/5 ML SYG IV ONE (17:24)
[2016-12-07] MEDS ORDERED: ROCURONIUM 50 MG INJ ONE (17:24)
[2016-12-07] MEDS ORDERED: PROPOFOL 20 ML ONE (17:24)
[2016-12-07] MEDS ORDERED: METOCLOPRAMIDE 10 MG INJ IV PRN (17:30)
[2016-12-07] MEDS ORDERED: MEPERIDINE 25 MG INJ IV PRN (17:30)
[2016-12-07] MEDS ORDERED: DIPHENHYDRAMINE 50 MG INJ IV PRN (17:30)
[2016-12-07] MEDS ORDERED: hydrALAzine 20 MG INJ IV PRN (17:30)
[2016-12-07] MEDS ORDERED: FENTAnyl 50 MCG/ML VIAL IV PRN ×3 (17:30)
[2016-12-07] MEDS ORDERED: LABETALOL HCL 20MG INJ IV PRN (17:30)
[2016-12-07] MEDS ORDERED: MIDAZOLAM 1 MG/ML 2 ML INJ IV PRN (17:30)
[2016-12-07] MEDS ORDERED: EPHEDrine SULFATE 50 MG/5 ML SYG IV PRN (17:30)
[2016-12-07] MEDS ORDERED: OXYCODONE/ACETAMINOPHEN (5/325) TAB PO PRN ×2 (17:30)
[2016-12-07] MEDS ORDERED: HYDROmorphONE (0.2 MG/ML) 10ML SYG IV PRN ×3 (17:30)
[2016-12-07] MEDS ORDERED: ONDANSETRON 4 MG INJ IV PRN (17:30)
--- NOTE | 2016-12-07 19:20 | OPR ---
Date/Time of Note Date/Time of Note DATE: 12/07/16 TIME: 19:10 Operative Report Procedure Date: Dec 07, 2016 Preoperative Diagnosis Right upper ureteral stone Postoperative Diagnosis Right upper ureteral stone Operation Performed Cystoscopy right ureteropyeloscopy, laser lithotripsy and insertion of right ureteral JJ stent 6 Jordanian by 22 cm long Surgeon: SHELLEY BOBO MD Anesthesia Type: general Anesthesiologist: IJEOMA NORTH MD Estimated Blood Loss: none Transfusion Required: no Specimens Stone fragments Complications: no Pt Condition Post Procedure: stable Disposition: PACU Indications Right upper ureteral stone with obstruction Operative\Procedure Findings Cystoscopy right ureteropyeloscopy, laser lithotripsy and insertion of right ureteral JJ stent 6 Jordanian by 22 cm long. The stone was in the upper ureter near the ureteropelvic junction and it moved up into the middle pole calyx so I did the laser lithotripsy in the kidney and basketed the stones out of the kidney Procedure Description The patient was brought to the operating room and given general anesthesia. The patient was positioned in the lithotomy position. She was given 2 g of Ancef IV at the start of the procedure. Time out was done and the patient was identified by her name birthdate, the procedure, and the side of the procedure. The genital area was then prepped and draped in the usual sterile manner. Did fluoroscopy first and one could see the stone still at the same level as it was on the CAT scan. #21 Jordanian cystoscope sheath was introduced into the bladder. The right ureteral orifice was visualized and then cannulated was a 5 Jordanian open ended ureteral catheter. 0.035 zip wire was then advanced under fluoroscopy through the open ended all the way up to the level of the stone. There it met some resistance from the stone however was some manipulation it did go around the stone and went up into the kidney. Then the open-ended was removed and reintroduced through the second working channel and a 0.035 sensor wire was passed through it all the way up to the level of the stone and again there was some problem with the stone blocking but after manipulation the sensor did go up to the kidney. Then the scope was removed leaving the [address]. The sensor wire was used as a safety wire and the zip wire was used to advance and it the access sheath which was 28 cm long and outside diameter 11 -13. The digital flexible ureteroscope was then advanced through the access sheath and all the way up to the level of the stone as it reached the level of the stone the stone did go back into the kidney and lodged in the middle pole calyx. I followed it with the digital flexible ureteroscope and then using the 200 m laser fiber the stone was fragmented into multiple pieces. 1.9 Jordanian basket was used and the stone fragments were basketed out of the kidney. At the underwear very few pinpoint sand-like fragments that the patient should be able to pass on her own. The ureteroscope was then removed and the access sheath was also removed then I reintroduced the cystoscope on the sensor wire. 22 cm long 6 Jordanian JJ stent was then advanced on the sensor wire and had it proximal limb girdle into the kidney and the distal one into the bladder the cystoscope was then removed and the distal end of the JJ stent is attached to a string that was taped to the patient's groin was 2 pieces of Tegaderm. The patient tolerated the procedure well and was transferred to recovery room stable and satisfactory condition SHELLEY BOBO MD Dec 07, 2016 19:20
[2016-12-07] MEDS ORDERED: CEFTRIAXONE 1 GM/50 ML (PMX) 50 ML IVPB SCH (20:30)
[2016-12-07] MEDS ORDERED: LEVOFLOXACIN 750MG/D5W (PMX) 150 ML IVPB SCH (23:00)
[2016-12-08] VITALS: BP 132/76; PULSE 78; RESP 18
[2016-12-08 02:19] VITALS: BP 118/73; RESP 18
[2016-12-08] MEDS: SOD CHLORIDE 0.9% 1,000 ML IV SCH (06:07)
[2016-12-08 06:20] LABS: BASOPHIL # 0.1 10^3/ul (0.0-0.1); BASOPHILS % 0.8 % (0.0-2.0); EOSINOPHILS # 0.1 10^3/ul (0.0-0.5); EOSINOPHILS % 1.9 % (0.0-7.0); HEMOGLOBIN 11.3 g/dl (12.0-16.0); LYMPHOCYTES # 1.6 10^3/ul (0.8-2.9); MEAN CORPUSCULAR HEMOGLOBIN 28.8 pg (29.0-33.0); MEAN CORPUSCULAR HGB CONC 32.3 g/dl (32.0-37.0); MEAN CORPUSCULAR VOLUME 89.1 fl (82.0-101.0); MEAN PLATELET VOLUME 9.9 fl (7.4-10.4); MONOCYTE # 0.5 10^3/ul (0.3-0.9); MONOCYTES % 6.2 % (0.0-11.0); PLATELET COUNT 341 10^3/UL (140-415); RED BLOOD COUNT 3.93 10^6/ul (4.20-5.40); RED CELL DISTRIBUTION WIDTH 12.8 % (11.5-14.5); WHITE BLOOD COUNT 7.3 10^3/ul (4.8-10.8)
[2016-12-08 06:41] LABS: CALCIUM 8.9 mg/dl (8.4-10.2); CREATININE 0.83 mg/dl (0.44-1.00); POTASSIUM 4.1 mmol/L (3.5-5.1)
[2016-12-08 06:42] LABS: MAGNESIUM 1.7 mg/dl (1.7-2.5); PHOSPHORUS 3.7 mg/dl (2.5-4.9)
[2016-12-08 07:11] LABS: THYROID STIMULATING HORMONE 7.09 MIU/L (0.465-4.680)
[2016-12-08 07:38] VITALS: BP 130/77; RESP 20
--- NOTE | 2016-12-08 08:07 | PN ---
Date/Time of Note Date/Time of Note DATE: 12/08/16 TIME: 08:04 Assessment/Plan VTE Prophylaxis VTE Prophylaxis Intervention: ambulation Lines/Catheters IV Catheter Type (from [facility]): Peripheral IV Urinary Cath still in place: No Assessment/Plan Chief Complaint/Hosp Course Patient is status post right ureteroscopy laser lithotripsy and insertion of right ureteral JJ stent. Patient is doing well her pain is controlled therefore she could go home today and she should call my office to see me on Tuesday to remove her JJ stent. she is instructed not to pull on the black string that is taped to her right groin Problems: Subjective 24 Hr Interval Summary Constitutional: no complaints, other (Patient is feeling better) Eyes: no complaints ENT: no complaints Cardiovascular: no complaints Gastrointestinal: no complaints Genitourinary: no complaints, other (She has her periods and has bleeding) Exam/Review of Systems Vital Signs Vitals Vital Signs Date Time Temp Pulse Resp B/P Pulse Ox O2 Delivery O2 Flow Rate FiO2 12/08/16 07:38 98.3 63 20 130/77 97 12/08/16 00:00 Room Air 12/07/16 19:29 2.0 Intake and Output 12/07/16 12/07/16 12/08/16 15:00 23:00 07:00 Intake Total 600 ml 950 ml 1190 ml Output Total 1905 ml 1700 ml Balance 600 ml -955 ml -510 ml Exam Constitutional: alert, oriented Psych: no complaints Head: normocephalic Eyes: nl conjunctiva ENMT: nl external ears & nose Neck: supple Respiratory: clear to auscultation Cardiovascular: nl pulses Gastrointestinal: soft Genitourinary - Female: No CVA tenderness Results Result Diagram: 12/08/16 0543 12/08/16 0543 Results 24 hrs Laboratory Tests Test 12/08/16 05:43 White Blood Count 7.3 Red Blood Count 3.93 L Hemoglobin 11.3 L Hematocrit 35.0 L Mean Corpuscular Volume 89.1 Mean Corpuscular Hemoglobin 28.8 L Mean Corpuscular Hemoglobin Concent 32.3 Red Cell Distribution Width 12.8 Platelet Count 341 Mean Platelet Volume 9.9 Neutrophils % 69.0 Lymphocytes % 22.0 Monocytes % 6.2 Eosinophils % 1.9 Basophils % 0.8 Nucleated Red Blood Cells % 0.0 Neutrophils # (Manual) 5.0 Lymphocytes # 1.6 Monocytes # 0.5 Eosinophils # 0.1 Basophils # 0.1 Nucleated Red Blood Cells # 0.0 Sodium Level 141 Potassium Level 4.1 Chloride Level 106 Carbon Dioxide Level 29 Anion Gap 10 Blood Urea Nitrogen 11 Creatinine 0.83 Glucose Level 90 Hemoglobin A1c 5.5 Calcium Level 8.9 Phosphorus Level 3.7 Magnesium Level 1.7 Triglycerides Level 74 Cholesterol Level 146 LDL Cholesterol, Calculated 95 HDL Cholesterol 36 Cholesterol/HDL Ratio 4.0 Thyroid Stimulating Hormone (TSH) 7.090 H Free Thyroxine 1.03 Medications Medications Current Medications Sodium Chloride (NS) 1,000 ml @ 100 mls/hr Q10H IV Last administered on 06:07; Admin Dose 100 MLS/HR; Start 12/06/16 at 20:18 Ondansetron HCl (Zofran Inj) 4 mg Q6H PRN IV NAUSEA AND/OR VOMITING; Start 12/06 at 20:30 Acetaminophen (Tylenol Tab) 650 mg Q6H PRN PO PAIN LEVEL 1-3 OR FEVER; Start at 20:30 Hydromorphone HCl (Dilaudid) 0.5 mg Q4H PRN IV SEVERE PAIN LEVEL 7-10; Start at 20:30 Famotidine 20 mg 20 mg Q12 PO Last administered on 12/07/16 20:32; Admin Dose 20 MG; Start 12/06/16 at 21:00 Levofloxacin/ Dextrose (Levaquin 750 Mg/ D5W 150 ml (Pmx)) 150 ml @ 100 mls/hr Q24H IVPB Last administered on 12/07/16 22:27; Admin Dose 100 MLS/HR; Start 12/07/16 at 23:00 Ketorolac Tromethamine (Toradol) 30 mg Q6H PRN IV PAIN Last administered on 12/07 20:32; Admin Dose 30 MG; Start 12/07/16 at 04:00; Stop 12/10/16 at 03:59 SHELLEY BOBO MD Dec 08, 2016 08:07
[2016-12-08] MEDS: FAMOTIDINE 20 MG TAB PO SCH (08:42)
--- NOTE | 2016-12-08 09:56 | RADRPT ---
PROCEDURE: Intraoperative imaging of the abdomen and pelvis with fluoroscopy. CLINICAL INDICATION: Abdominal pain. Intraoperative. TECHNIQUE: 13 images of the abdomen and pelvis were obtained in the operating room with an image i ntensifier. No radiologist was in attendance. 135 seconds of fluoroscopy time was used. COMPARISON: Abdomen radiograph dated 12/07/2016. CT scan of the abdomen and pelvis dated 7. FINDINGS: Images demonstrate instrumentation of the right ureter and subsequent placement of a right ureteral double pigtail stent in satisfactory position. IMPRESSION: 1. Satisfactory intraoperative imaging of the abdomen and pelvis. RPTAT: QQ .Remberto Lopez MD, MD Date Time Electronically viewed and signed by .Remberto Lopez MD, MD on 12/08/2016 09:56 .R/
--- NOTE | 2016-12-08 10:03 | PDOCDIS ---
Discharge Instructions DIAGNOSIS Discharge Diagnosis Nephrolithiasis. CONDITION Patient Condition: Stable FOLLOW UP/APPOINTMENTS Follow-up Plan Willian Knight MD Specialty Urology Office Address [address] [facility] [address] [place] [id number] Office OTHER ORDERS: Other Orders: 1. Take pain medications as needed. 2. Regular diet. Adequately hydrated results. 3. Activities as tolerated. Try to avoid pulling the string coming out of the urethra. 4. Follow-up with Dr. Knight on 12/13/2016. NITISH WHITLEY NP Dec 08, 2016 10:03
--- NOTE | 2016-12-08 11:25 | DS ---
DATE OF ADMISSION: 12/06/2016 DATE OF DISCHARGE: 12/08/2016 FINAL DIAGNOSES: 1. Right upper ureteral stone. Status post cystoscopy with right ureteral pyeloscopy, laser lithotripsy, and insertion of right ureteral JJ stent. 2. Obesity. 3. Hypothyroidism. CONSULTANTS: Dr. Willian Knight, Urology. HOSPITAL COURSE: This is a 41-year-old female, who presented to the emergency room as instructed by Dr. Knight. The patient had a chief complaint of right-sided flank pain. The patient was seen and admitted last week for nephrolithiasis and she was evaluated at [facility] for right flank pain. She had a CT scan of the abdomen and pelvis that showed a 7 mm ureterolith in the right ureterovesical junction causing moderate hydronephrosis of the right kidney. The patient was admitted to inpatient medical surgical floor. The patient was provided with IV hydration. The patient was started on empiric antibiotics for any underlying urinary tract infection. The patient's urine cultures remain negative. The patient underwent a cystoscopy with right ureteropyeloscopy, laser lithotripsy, and insertion of right ureteral JJ stent on December 07, 2016. The patient was provided with adequate pain control. The patient was cleared by Urology to be discharged home to be followed up with outpatient Urology on 12/13/2016. The patient had a stable hospital course. The patient was cleared by Urology to be discharged home without any antibiotics. DISCHARGE DISPOSITION/PLAN: The patient will be discharged home today. The patient was instructed to follow up with Dr. Knight as scheduled on 12/13/2016. She was instructed to follow a regular diet. She was instructed to resume home medications. The patient was instructed to resume activities as tolerated; however, she was instructed to avoid pulling the string coming out of her urethra. The patient verbalized understanding of her discharge instructions. DISCHARGE CONDITION: Stable. DISCHARGE MEDICATIONS: 1. The patient was instructed to resume her home levothyroxine. 2. She was instructed to take [id number] Tylenol or Motrin for pain. PERTINENT LAB AND DIAGNOSTIC DATA AND PROCEDURES: 1. Cystoscopy with right ureteropyeloscopy, laser lithotripsy, and insertion of right ureteral JJ stent on 12/07/2016. 2. Urine culture negative. 3. Abdominal x-ray on 12/07/2016: No radiopaque renal or ureteral calculi are identified. 4. Latest CBC: WBC 7.3, hemoglobin 11.3, hematocrit 35.0, platelet count 341. 5. Latest BMP: Sodium 141, potassium 4.1, chloride 106, carbon dioxide 20, anion gap 10, BUN 11, creatinine 0.8, glucose 90, calcium 8.9, phosphorus 3.7, magnesium 1.7. 6. Hemoglobin A1c 5.5. 7. Fasting lipid panel, triglycerides 74, total cholesterol 146, LDL 95, HDL 36. 8. Thyroid panel: TSH 7.090, free T4 1.03. At this time, I would like to thank Dr. Knight for seeing the patient, doing the necessary procedures, and providing clinical recommendations. The case and management of this patient was fully discussed with Dr. Arora. Approximately 35 minutes were spent on coordinating the discharge on this patient. Dictated By: Franko Yoon NP /catrachito/ilia /Document#: [id number] KRAIG
--- NOTE | 2016-12-08 19:16 | RADRPT ---
Vent Rate: 81 bpm RR Interval: 0 msec PA Interval: 176 msec QRS Duration: 76 msec QT Interval: 390 msec QTC Interval: 453 msec P-R-T [place]: 44 - 66 - 60 degrees Normal sinus rhythm Normal ECG Electronically Signed By: Masood Pena [id number]
== END 2016-12-08 11:55 | disposition home or self-care (01) | DRG 660 ==
LOC: FTE 15:36 → MS2 18:37
PROVIDERS: ADMIT Internal Medicine; ATTEND Internal Medicine
PROC: 0T768DZ Dilation of Right Ureter with Intraluminal Device, Via Natural or Artificial Opening Endoscopic (ICD-10-PCS; 2016-12-07)
PROC: 0TC08ZZ Extirpation of Matter from Right Kidney, Via Natural or Artificial Opening Endoscopic (ICD-10-PCS; principal; 2016-12-07 15:30)
DX: N13.2 Hydronephrosis with renal and ureteral calculous obstruction (principal); E66.9 Obesity, unspecified; N39.0 Urinary tract infection, site not specified; E03.9 Hypothyroidism, unspecified; Z68.38 Body mass index [BMI] 38.0-38.9, adult
CPT/HCPCS: 71010; 74000; 74010; 74430; 80048; 80053; 80061; 81001; 83036; 83690; 83735; 83970; 84100; 84439; 84443; 85025; 87086; 88300; 93005; C2617; J0690; J1885; J1956; J2175; J2405; J2710; J7030; J7999